=== PATIENT | male | born 1990 | race Caucasian/White ===

== ENCOUNTER 2017-09-18 09:26 | Emergency (ER) | payer OTHER ==
[~2017-09-18] VITALS: Ht 175.3 cm; Wt 97.5 kg
[2017-09-18 09:28] VITALS: BP 121/71; PULSE 90; RESP 18; TEMP 97.9; O2SAT 100
[2017-09-18] MEDS ORDERED: ERYTOIN10 RIGHT EYE (09:52)
--- NOTE | 2017-09-18 09:52 | PD ---
HPI Chief Complaint: Eye Problems/Injury Time Seen by Provider: 09:42 Travel History International Travel<30 days: No Contact w/Intl Traveler<30days: No Traveled to known affect area: No History of Present Illness HPI 27-year-old man who presents emergency department complaining of right eye pain. [place] when a branch came back up in the right eye. He has pain redness irritation and blurred vision the right eye. No history of contact lens wear. No history of glasses use. Otherwise been feeling well and healthy. History Past Medical History Medical History: Denies Significant Hx Tetanus Vaccination: > 5 Years Past Surgical History Surgical History: No Previous Surgery Social History Alcohol Use: No Tobacco Use: Yes Allergies-Medications (Allergen,Severity, Reaction): Coded Allergies: No Known Allergies (Unverified , 09/18/17) Reported Meds & Prescriptions Reported Meds & Active Scripts Active No Active Prescriptions or Reported Medications Review of Systems General / Constitutional: No: Fever, Chills Eyes: Positive: Blurred Vision, No: Diploplia HENT: No: Headaches, Vertigo, Lightheadedness Physical Exam Narrative Gen.: Well-appearing 27 year-old woman, no acute distress HEENT: Normal appearance of the face and nose and periorbital areas. Eyes: Right eye is injected with some tearing and irritation. There is a visible corneal defect in the upper temporal quadrant of the right eye, just overlapping with the visual axis. Fluorescein exam shows small area of uptake in that same area. Data Data Last Documented VS Vital Signs Date Time Temp Pulse Resp B/P (MAP) Pulse Ox O2 Delivery O2 Flow Rate FiO2 09/18/17 09:28 97.9 90 18 121/71 (88) 100 Room Air Orders Orders Erythromycin 0.5% Opth Oint (Ilotycin 0. (09/18/17 10:00) MDM Medical Decision Making Medical Screen Exam Complete: Yes Emergency Medical Condition: Yes Differential Diagnosis Abrasion, ulcer, herpetic injury, other Narrative Course Medical decision making This 27-year-old presents emergency department with irritation in the right eye after he got hit with a small branch. Small corneal defect is visible. Suggestive of corneal abrasion. I don't see any opacity or evidence of ulceration. No should contact lens wear. Recommend erythromycin ointment, outpatient follow-up given the proximity of the abrasion to the visual axis. Referrals: Rosalba Rashid MD 1 day Additional Instructions: Follow-up with ophthalmology to ensure adequate healing. Return to the emergent department for any worsening pain redness swelling drainage or visual changes or any other new or worsening symptoms. Take [id number] medications as needed for pain. Use her thumb I ointment as prescribed. Med/Other Pt SpecificInfo: Prescription(s) given Scripts Erythromycin Opth Oint (Erythromycin Opth Oint) 5 Mg/Gm Oint 1 APPLIC RIGHT EYE QID for Infection for 7 Days, #1 TUBE 0 Refills Prov: Dustin Serna MD 09/18/17 Disposition: 01 DISCHARGE HOME Condition: Stable Dsutin Serna MD Sep 18, 2017 09:52
[2017-09-18] MEDS ORDERED: ERYTHROMYCIN 0.5% OPTH OINT 3.5 GM TUBO EACH EYE ONE (10:00)
--- NOTE | 2017-09-18 10:26 | PD ---
Data Data Last Documented VS Vital Signs Date Time Temp Pulse Resp B/P (MAP) Pulse Ox O2 Delivery O2 Flow Rate FiO2 09/18/17 10:25 09/18/17 09:28 97.9 90 18 100 Room Air Orders Orders Erythromycin 0.5% Opth Oint (Ilotycin 0. (09/18/17 10:00) Ed Discharge Order (09/18/17 09:52) [facility] Supervised Visit with YOLETTE: Yes Diagnosis Primary Impression: Cornea abrasion Referrals: Rosalba Rashid MD 1 day Patient Instructions: General Instructions, Erythromycin (Into the eye), Corneal Abrasion (ED) Departure Forms: Work Release, Enter return to work date: Sep 21, 2017 Tests/Procedures Additional Instruction: Follow-up with ophthalmology to ensure adequate healing. Return to the emergent department for any worsening pain redness swelling drainage or visual changes or any other new or worsening symptoms. Take [id number] medications as needed for pain. Use her thumb I ointment as prescribed. Scripts Erythromycin Opth Oint (Erythromycin Opth Oint) 5 Mg/Gm Oint 1 APPLIC RIGHT EYE QID for Infection for 7 Days, #1 TUBE 0 Refills Prov: Dustin Serna MD 09/18/17 Disposition: 01 DISCHARGE HOME Condition: Stable Dustin Serna MD Sep 18, 2017 10:26
== END 2017-09-18 10:26 | disposition home or self-care (01) ==
LOC: NEPK 09:26
DX: S05.01XA Injury of conjunctiva and corneal abrasion without foreign body, right eye, initial encounter (principal); W22.8XXA Striking against or struck by other objects, initial encounter
CPT/HCPCS: 99283